=== PATIENT | male | born 1950 | race Caucasian/White ===

== ENCOUNTER 2023-01-27 23:44 | Emergency (ER) | payer MEDICARE ==
[2023-01-28 00:16] VITALS: TEMP 97.7
[2023-01-28 00:36] LABS: ALT 14 U/L (4-49); AST 26 U/L (17-59); African American GFR (CKD) 74 (>60 ml/min/1.73 sqM); Albumin 4.3 g/dL (3.5-5.0); Alkaline Phosphatase 143 U/L (38-126); Anion Gap 12 mmol/L; Blood Urea Nitrogen 22 mg/dL (9-20); Calcium 9.5 mg/dL (8.4-10.2); Carbon Dioxide 23 mmol/L (22-30); Chloride 103 mmol/L (98-107); Glucose 94 mg/dL (74-99); Magnesium 2.2 mg/dL (1.6-2.3); Non-African American GFR(CKD) 64 (>60 ml/min/1.73 sqM); Potassium 3.9 mmol/L (3.5-5.1); Sodium 138 mmol/L (137-145); Total Bilirubin 1.1 mg/dL (0.2-1.3)
[2023-01-28 00:38] LABS: Basophils % (A) 0 %; Eosinophils # (A) 0.4 k/uL (0-0.7); Eosinophils % (A) 5 %; HCT 46.2 % (39.0-53.0); HGB 15.4 gm/dL (13.0-17.5); Lymphocytes # (A) 2.2 k/uL (1.0-4.8); Lymphocytes % (A) 30 %; MCH 31.1 pg (25.0-35.0); MCHC 33.3 g/dL (31.0-37.0); MCV 93.3 fL (80.0-100.0); Monocytes # (A) 0.5 k/uL (0-1.0); Monocytes % (A) 7 %; Neutrophils # (A) 4.1 k/uL (1.3-7.7); Neutrophils % (A) 55 %; Platelet Count 195 k/uL (150-450); RBC 4.95 m/uL (4.30-5.90); RDW 13.2 % (11.5-15.5); WBC 7.6 k/uL (3.8-10.6)
--- NOTE | 2023-01-28 00:57 | CT ---
EXAM: CT Head Without Intravenous Contrast CLINICAL HISTORY: ITS.REASON CT Reason: MS change TECHNIQUE: Axial computed tomography images of the head/brain without intravenous contrast. CTDI is 49.2 mGy and DLP is 1276.4 mGy-cm. This CT exam was performed using one or more of the following dose reduction techniques: automated exposure control, adjustment of the mA and/or kV according to patient size, and/or use of iterative reconstruction technique. COMPARISON: No relevant prior studies available. FINDINGS: No acute intracranial hemorrhage. No midline shift or mass effect. 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 Age-related cerebral volume loss. Periventricular and subcortical white matter hypoattenuation, consistent with chronic microangiopathy. The visualized orbits appear grossly unremarkable. Old RIGHT craniotomy. The visualized paranasal sinuses and mastoid air cells are grossly clear. IMPRESSION: No acute intracranial hemorrhage, midline shift, or mass effect. 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
--- NOTE | 2023-01-28 00:59 | XR ---
EXAM: XR Chest, 2 Views CLINICAL HISTORY: ITS.REASON XR Reason: MS change TECHNIQUE: Frontal and lateral views of the chest. COMPARISON: No relevant prior studies available. FINDINGS: Lungs: Unremarkable. No consolidation. Pleural space: Unremarkable. No pneumothorax. Heart: Unremarkable. No cardiomegaly. Mediastinum: Unremarkable. Bones/joints: Unremarkable. IMPRESSION: Normal chest x-rays.
[2023-01-28 01:58] LABS: Appearance,Urine Clear (Clear); Bilirubin,Urine Negative (Negative); Blood,Urine Negative (Negative); Color,Urine Light Yellow; Glucose,Urine (UA) Negative (Negative); Ketones,Urine Trace (Negative); Leukocyte Esterase,Urine Small (Negative); Mucus,Urine Rare /hpf; Nitrite,Urine Negative (Negative); Protein,Urine Negative (Negative); RBC,Urine 1 /hpf (0-5); Specific Gravity,Urine 1.007 (1.001-1.035); Urobilinogen,Urine <2.0 mg/dL (<2.0); WBC,Urine 3 /hpf (0-5)
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
[2023-01-28 02:15] VITALS: BP 155/85; PULSE 61; RESP 16
== END 2023-01-28 02:23 | disposition home or self-care (01) ==
LOC: EC 23:44
DX: R41.82 Altered mental status, unspecified (principal); F31.9 Bipolar disorder, unspecified; E03.9 Hypothyroidism, unspecified; Z87.891 Personal history of nicotine dependence; Z79.890 Hormone replacement therapy; Z79.899 Other long term (current) drug therapy; Z88.0 Allergy status to penicillin; Z88.1 Allergy status to other antibiotic agents
CPT/HCPCS: 36415; 70450; 71046; 80053; 81001; 83735; 85025; 93005; 99285

== ENCOUNTER 2023-10-06 09:46 | Observation (INO) | payer MEDICARE ==
[2023-10-06 10:27] LABS: Glucose,Whole Blood 98 mg/dL (70-110)
[2023-10-06] MEDS: diphenhydrAMINE 50 MG/ML 1 ML VIAL IVP STA (10:31)
[2023-10-06] MEDS: METOCLOPRAMIDE 5 MG/ML 2 ML VIAL IVP STA (10:31)
[2023-10-06] MEDS: SODIUM CHLORIDE 0.9% 1,000 ML IV ONE (10:31)
[2023-10-06 10:48] LABS: Basophils % (A) 1 %; Eosinophils # (A) 0.6 k/uL (0-0.7); Eosinophils % (A) 12 %; HCT 43.8 % (39.0-53.0); HGB 14.5 gm/dL (13.0-17.5); Lymphocytes % (A) 22 %; MCH 31.3 pg (25.0-35.0); MCHC 33.1 g/dL (31.0-37.0); MCV 94.4 fL (80.0-100.0); Mean Platelet Volume 7.4; Monocytes # (A) 0.3 k/uL (0-1.0); Monocytes % (A) 6 %; Neutrophils # (A) 2.8 k/uL (1.3-7.7); Neutrophils % (A) 59 %; Platelet Count 202 k/uL (150-450); RBC 4.64 m/uL (4.30-5.90); RDW 13.3 % (11.5-15.5); WBC 4.8 k/uL (3.8-10.6)
--- NOTE | 2023-10-06 11:01 | XR ---
EXAMINATION TYPE: XR chest 2V DATE OF EXAM: 10/06/2023 10:55 AM CLINICAL INDICATION:Male, 73 years old with history of altered mental status; [facility] COMPARISON: Chest radiographs from 01/28/2023 TECHNIQUE: XR chest 2V Frontal and lateral views of the chest. FINDINGS: Lungs/Pleura: There is no evidence of pleural effusion, focal consolidation, or pneumothorax. Pulmonary vascularity: Unremarkable. Heart/mediastinum: Cardiomediastinal silhouette is unremarkable. Musculoskeletal: No acute osseous pathology. IMPRESSION: No acute cardiopulmonary disease/process.
[2023-10-06 11:03] LABS: Potassium 3.7 mmol/L (3.5-5.1)
[2023-10-06 11:04] LABS: ALT 10 U/L (4-49); AST 22 U/L (17-59); African American GFR (CKD) 73 (>60 ml/min/1.73 sqM); Albumin 3.7 g/dL (3.5-5.0); Alcohol <10 mg/dL; Alkaline Phosphatase 108 U/L (38-126); Anion Gap 6 mmol/L; Blood Urea Nitrogen 13 mg/dL (9-20); Calcium 9.1 mg/dL (8.4-10.2); Carbon Dioxide 29 mmol/L (22-30); Chloride 106 mmol/L (98-107); Glucose 100 mg/dL (74-99); Non-African American GFR(CKD) 63 (>60 ml/min/1.73 sqM); Sodium 141 mmol/L (137-145); Total Bilirubin 0.7 mg/dL (0.2-1.3); Total Protein 6.9 g/dL (6.3-8.2)
[2023-10-06 11:14] LABS: Prothrombin Time 10.8 sec (10.0-12.5)
[2023-10-06 11:18] LABS: Partial Thromboplastin Time 20.6 sec (22.0-30.0)
--- NOTE | 2023-10-06 11:26 | CT ---
EXAMINATION TYPE: CT brain wo con CT DLP: 1158 mGycm, Automated exposure control for dose reduction was used. DATE OF EXAM: 10/06/2023 11:18 AM COMPARISON: 01/28/2023. CLINICAL INDICATION:Male, 73 years old with history of Altered mental status, TECHNIQUE: Brain: Axial CT images of the brain were obtained with coronal and sagittal reformats created and rev iewed. Contrast used: None. Oral contrast used: None. FINDINGS: Brain: Extra-axial spaces: No abnormal extra-axial fluid collections. Ventricular system: Within normal limits Cerebral parenchyma: Encephalomalacia of the left MCA territory from prior injury. No acute intrapare nchymal hemorrhage or mass effect. The spencer-white junction is well differentiated. Cerebellum: Unremarkable. Mass effect: No evidence of midline shift. Intracranial vasculature: Atherosclerotic calcifications of the intracranial vessels. Soft tissues: Normal. Calvarium/osseous structures: No depressed skull fracture. Metallic density to the right skull. Paranasal sinuses and mastoid air cells: Mild scattered paranasal sinus disease. Visualized orbits: Orbital contents are intact. IMPRESSION: Encephalomalacia the left MCA territory from prior injury. No new areas of acute/subacute CVA identif ied. No acute intracranial process.
[2023-10-06 11:47] LABS: Appearance,Urine Clear (Clear); Bilirubin,Urine Negative (Negative); Blood,Urine Negative (Negative); Color,Urine Colorless; Glucose,Urine (UA) Negative (Negative); Ketones,Urine Negative (Negative); Leukocyte Esterase,Urine Negative (Negative); Nitrite,Urine Negative (Negative); Protein,Urine Negative (Negative); Specific Gravity,Urine 1.013 (1.001-1.035); Urobilinogen,Urine <2.0 mg/dL (<2.0)
[2023-10-06 11:57] LABS: Amphetamine Screen,Urine Not Detected (NotDetected); Benzodiazepines Screen,Urine Detected (NotDetected); Cocaine Screen,Urine Not Detected (NotDetected); Methadone Screen, Urine Not Detected (NotDetected); Opiate Screen,Urine Detected (NotDetected); Phencyclidine Screen,Urine Not Detected (NotDetected); Tricyclic Antidepressant,Urine Detected (NotDetected); Urn Cannabinoid Scrn Detected (NotDetected)
[2023-10-06 11:58] LABS: Barbiturate Screen,Urine Not Detected (NotDetected); Oxycodone Screen, Urine Not Detected (NotDetected)
[2023-10-06] MEDS: KETOROLAC 15 MG/ML 1 ML VIAL IVP STA (12:09)
[2023-10-06] MEDS ORDERED: NALOXONE 0.4 MG/ML 1 ML VIAL IV PRN (12:13)
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
[2023-10-06] MEDS: LORazepam 2 MG/ML INJ IV STA (13:40)
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
[2023-10-06] MEDS: amLODIPine 2.5 MG TAB PO SCH (19:35)
[2023-10-06] MEDS: ASPIRIN 81 MG PO SCH (20:50)
[2023-10-06] MEDS: traZODone HCL 100 MG TAB PO SCH (20:50)
[2023-10-06] MEDS: levETIRAcetam 500 MG TAB PO SCH (20:50)
[2023-10-06] MEDS: ACETAMINOPHEN TAB 325 MG TAB PO PRN (20:50)
[2023-10-07] MEDS: HEPARIN SODIUM,PORCINE 5,000 UNIT/ML 1 ML VIAL SQ SCH (00:41)
[2023-10-07] MEDS: LEVOTHYROXINE 137 MCG TAB PO SCH (05:52)
[2023-10-07 08:32] LABS: Basophils # (A) 0.04 X 10*3/uL (0.00-0.10); Basophils % (A) 0.7 %; Eosinophils # (A) 1.01 X 10*3/uL (0.04-0.35); Eosinophils % (A) 16.4 %; HCT 41.2 % (39.6-50.0); HGB 13.8 g/dL (13.0-17.0); Immature Grans, Automated 0 %; Lymphocytes # (A) 1.71 X 10*3/uL (0.90-5.00); Lymphocytes % (A) 27.9 %; MCH 30.3 pg (27.0-32.0); MCHC 33.5 g/dL (32.0-37.0); MCV 90.5 FL (80.0-97.0); Mean Platelet Volume 9.8 FL (9.5-12.2); Monocytes # (A) 0.47 X 10*3/uL (0.20-1.00); Monocytes % (A) 7.7 %; NRBC Per 100 WBC 0 X 10*3/uL (0.00-0.01); Neutrophils # (A) 2.91 X 10*3/uL (1.80-7.70); Neutrophils % (A) 47.3 %; Platelet Count 207 X 10*3/uL (140-440); RBC 4.55 X 10*6/uL (4.40-5.60); RDW 13.1 % (11.5-14.5); WBC 6.14 X 10*3/uL (4.50-10.00)
[2023-10-07 09:11] LABS: ALT 10 U/L (10-49); AST 20 U/L (14-35); Albumin 3.7 g/dL (3.8-4.9); Albumin/Globulin Ratio 1.42 Ratio (1.60-3.17); Alkaline Phosphatase 107 U/L (41-126); BUN/Creat Ratio 12.12 Ratio (12.00-20.00); Blood Urea Nitrogen 19.4 mg/dL (9.0-27.0); Calcium 9.2 mg/dL (8.7-10.3); Carbon Dioxide 25.8 mmol/L (21.6-31.8); Chloride 105 mmol/L (96-109); Globulin 2.6 g/dL (1.6-3.3); Glucose 100 mg/dL (70-110); Potassium 3.7 mmol/L (3.5-5.5); Sodium 141 mmol/L (135-145); Total Bilirubin 0.3 mg/dL (0.3-1.2); Total Protein 6.3 g/dL (6.2-8.2)
[2023-10-07] MEDS: QUEtiapine 25 MG TAB PO SCH ×2 (09:45→21:48)
[2023-10-07] MEDS: TAMSULOSIN 0.4 MG CAP.ER.24H PO SCH (09:45)
[2023-10-07] MEDS: amLODIPine 5 MG TAB PO SCH (09:46)
[2023-10-07 14:35] VITALS: RESP 20
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
[2023-10-07] MEDS: DIVALPROEX 500 MG TABLET.DR PO SCH (21:47)
[2023-10-08] MEDS: QUEtiapine 25 MG TAB PO STA (01:21)
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
[2023-10-08 13:30] VITALS: BP 148/78; PULSE 79; TEMP 97.9
--- NOTE | 2023-10-08 14:34 | P.PN ---
Subjective Progress Note Date: 10/08/23 I was notified by the nurse, that his daughter feels patient is back to baseline. His daughter left some documentation from prior hospitalization in past and it seems patient was hospitalized towards end of 2022 at [facility] and is is mention Delirum with lack of sleep and agitation. Could not obtain MRI Brain since has metal in skull. Objective - Vital Signs Vital signs: Vital Signs Temp 97.9 F 10/08/23 08:45 Pulse 79 10/08/23 08:45 Resp 20 10/07/23 13:11 BP 148/78 10/08/23 08:45 Pulse Ox 94 L 10/08/23 08:45 FiO2 Intake & Output 10/07/23 10/08/23 10/08/23 18:59 06:59 18:59 Other: Voiding Method Toilet # Voids 4 5 - Exam General: Lying in bed and does not appear in acute distress. Neuro: Very limited. Patient is severely global aphasic. Not following commands. No facial droop at baseline. Some of the work-up during this hospital visit consisted of: TSH is 4.380. Urine drug screen is positive for marijuana, benzoyl, tricyclic antidepressant and opiates CT of the head is reported as encephalomalacia over the left MCA territory from prior injury. No area of acute/subacute CVA identified. No acute intracranial process. I personally reviewed that a CT and the patient has large left MCA stroke which is old. - Labs CBC & Chem 7: 10/07/23 05:14 10/07/23 05:14 Assessment and Plan Assessment: This is a 73-year-old gentleman with history of severe left MCA stroke end of 11/2022 with residual severe global aphasia, mutism who eventually develop agitation, restlessness and insomnia in March 2023 and in July 2023 he had a seizure. It seems that the patient has been in and out of the hospital multiple times for his agitation, restlessness and lack of sleep and he is having those for past one week. At the outside hospital he was given diagnosis of vascular dementia. Patient had multiple EEGs and no seizures according to the daughter. Delirium with Agitation, restlessness seems due to his old stroke as well as can be exacerbated due to medication use (Keppra)---improved today compared to yesterday. History of large left MCA stroke towards end of November 2022 with residual global aphasia, mutism Behavioral issues with agitation and restlessness and lack of sleep since March 2023 and was given diagnosis of Delirium at outside facility. History of seizure Vascular Dementia (has stroke,hypertension). Also has seizure that impacts dementia. History of bipolar Marijuana use Plan: According to the daughter he supposed to have MRI of the brain by his outpatient neurologist today as outpatient by his neurologist. We cannot obtain MRI since has metal in skull. Recommend to pursue with MRI as outpatient by his neurologist. 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 Routine EEG: No seizure or discharges Patient is currently on aspirin 81 mg daily at bedtime. Recommend Lipitor 20 mg daily at bedtime for secondary stroke prophylaxis the patient stated that they stop statin since he does not have high cholesterol and this is not used only for cholesterol but is used for secondary stroke prophylaxis. Regarding the Keppra 1 g twice a day,it can worsen behavioral/mood issues. I went down to 750mg bid on 10/07/2023 and started him on Depakote 500mg bid. I recommend to titrate Keppra down and can go up on Depakote for seizure. Will defer management to his neurologist. Patient is on Seroquel 25 mg daily and I went up on 25mg bid on 10/07/23. We'll defer the rest of the medical management to primary team Upon discharge recommend the patient to follow-up with his neurologist Dr. Marychuy orr as an outpatient within 2 weeks. The plan was discussed in detail with the patient's nurse and primary team N.P. There is no further neurological work-up. Time with Patient: Less than 30
--- NOTE | 2023-10-08 20:28 | EEG ---
ELECTROENCEPHALOGRAM REPORT CLINICAL HISTORY: This is a 73-year-old gentleman with history of left hemispheric stroke, seizures, who presents because of agitation. The video EEG is obtained to evaluate for seizure epileptiform activity. RELEVANT MEDICATIONS: 1. Keppra. 2. Depakote. EEG TYPE: A routine 21-channel EEG with video using the 10/20 electrode placement system. DESCRIPTION: Wakefulness is only obtained. During awake state, the posterior-dominant rhythm consists of [id number] voltage of 8.5 hertz activity that is well modulated and well sustained. There is no physiological stage 2 sleep architecture. There is focal slowing over the left temporal, parietal and central region. Interictal and ictal is none. ACTIVATION PROCEDURE: Photic stimulation did not evoke a posterior driving response. There is no abnormality during the photic stimulation. Hyperventilation is not performed. CLINICAL INTERPRETATION: This is an abnormal routine EEG. The focal slowing is suggestive of cerebral dysfunction in the involved region, which is consistent with the patient's history of old stroke. There is no epileptiform discharge, or seizure on the EEG. Clinical correlation is recommended. MMODL / IJN: [id number] / BLAKE
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
== END 2023-10-08 13:35 | disposition home or self-care (01) ==
LOC: EC 09:46 → 4SSUR 13:00
PROVIDERS: ADMIT Internal Medicine; ATTEND Internal Medicine
DX: R45.1 Restlessness and agitation (principal); F01.518 Vascular dementia, unspecified severity, with other behavioral disturbance; N40.0 Benign prostatic hyperplasia without lower urinary tract symptoms; E03.9 Hypothyroidism, unspecified; F31.9 Bipolar disorder, unspecified; I10 Essential (primary) hypertension; G40.909 Epilepsy, unspecified, not intractable, without status epilepticus; F12.90 Cannabis use, unspecified, uncomplicated; F10.10 Alcohol abuse, uncomplicated; R54 Age-related physical debility; I69.320 Aphasia following cerebral infarction; Y90.0 Blood alcohol level of less than 20 mg/100 ml; Z79.82 Long term (current) use of aspirin; Z79.890 Hormone replacement therapy; Z79.899 Other long term (current) drug therapy; Z88.0 Allergy status to penicillin; Z88.1 Allergy status to other antibiotic agents
CPT/HCPCS: 96372 ×2; 96361; 96374; 96375; 99285; 36415; 95816; 93005; 97162; 97166; 80053 ×2; 84443; 82140; 83605; 85025 ×2; 85610; 85730; 81003; 80306; 87636; 71046; 70450; G0378 ×3; G0480; J2060; J1200; J1644 ×2; J2765; J1885; 80320

== ENCOUNTER 2023-10-30 10:11 | Emergency (ER) | payer MEDICARE ==
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
--- NOTE | 2023-10-30 11:08 | XR ---
EXAMINATION TYPE: XR hand complete LT DATE OF EXAM: 10/30/2023 CLINICAL HISTORY: pain TECHNIQUE: Frontal, lateral and oblique images of the left hand are obtained. COMPARISON: None. FINDINGS: There is no acute fracture/dislocation evident. The joint spaces appear within normal limi ts. The overlying soft tissue appears unremarkable. IMPRESSION: There is no acute fracture or dislocation. ICD 10 NO FRACTURE, INITIAL EVALUATION
--- NOTE | 2023-10-30 11:12 | XR ---
EXAMINATION TYPE: XR forearm LT DATE OF EXAM: 10/30/2023 CLINICAL HISTORY: pain TECHNIQUE: Frontal and lateral images of the left forearm are obtained. COMPARISON: None. FINDINGS: There is no acute fracture/dislocation evident. The joint spaces appear within normal limi ts. The overlying soft tissue appears unremarkable. IMPRESSION: There is no acute fracture or dislocation. ICD 10 NO FRACTURE, INITIAL EVALUATION
[2023-10-30 12:13] VITALS: BP 130/68; PULSE 78; RESP 16; TEMP 97.6
== END 2023-10-30 11:55 | disposition home or self-care (01) ==
LOC: EC 10:11
DX: S63.92XA Sprain of unspecified part of left wrist and hand, initial encounter (principal); Z87.891 Personal history of nicotine dependence; Z88.0 Allergy status to penicillin; Z88.8 Allergy status to other drugs, medicaments and biological substances; X58.XXXA Exposure to other specified factors, initial encounter
CPT/HCPCS: 99283